=== PATIENT | male | born 1960 | race Hispanic/Latino ===

== ENCOUNTER 2024-05-05 19:27 | Emergency (ER) | payer BC ==
[~2024-05-05] VITALS: Ht 165.1 cm; Wt 101.2 kg
[~2024-05-05 19:27] MED LIST: AMLODIPINE BESYL5 MG PO; CLONIDINE HCL0.1 MG PO
[2024-05-05 19:30] VITALS: PULSE 82; RESP 18; TEMP 100.2; O2SAT 98
[2024-05-05] MEDS ORDERED: BENZONATATE200 MG PO (20:10)
[2024-05-05] MEDS: ACETAMINOPHEN 325 MG TAB PO ONE (20:12)
[2024-05-05] MEDS: IBUPROFEN 600 MG TAB PO STA (20:13)
== END 2024-05-05 20:17 | disposition home or self-care (01) ==
LOC: FSED 19:32
DX: U07.1 COVID-19 (principal); I10 Essential (primary) hypertension; Z79.899 Other long term (current) drug therapy
CPT/HCPCS: 99283